=== PATIENT | female | born 1985 ===

== ENCOUNTER 2019-10-15 22:21 | Emergency (ER) | payer OTHER ==
[~2019-10-15] VITALS: Ht 162.6 cm; Wt 64.0 kg
[2019-10-15] MEDS ORDERED: NEOSPORIN OINT. PKT 1 PACKET ONE (22:51)
--- NOTE | 2019-10-15 22:53 | NUR ---
PROVIDED WITH AICHA, RESTING ON JOE KONG WITH FLIGHT OF IDEASCARRILLO SI/AUNG, ROOM SECURED. Addendum: 10/15/19 at 2308 by UVALDO PT'S PERSONAL BELONGINGS REMOVED FROM ROOM AND PLACED IN SECURITY LOCKER ( 1 BAG)
[2019-10-15] MEDS ORDERED: ZIPRASIDONE 20 MG INJ IM ONE ×2 (22:57→23:00)
--- NOTE | 2019-10-15 23:04 | NUR ---
PT MEDICATED PER MAR
--- NOTE | 2019-10-15 23:08 | NUR ---
[employer] TRAINING OFFICER AT PT'S BEDSIDE FOR WOUND CLEANING, BACITRACIN APPLIED
[2019-10-15 23:17] LABS: AMPHETAMINE SCREEN, URINE Positive (Negative); BARBITURATE SCREEN, URINE Negative (Negative); BENZODIAZEPINE SCREEN, URINE Negative (Negative); CANNABINOID SCREEN, URINE Positive (Negative); COCAINE SCREEN, URINE Negative (Negative); METHADONE SCREEN, URINE Negative (Negative); OPIATE SCREEN, URINE Negative (Negative)
[2019-10-15 23:21] LABS: BASOPHILS # (AUTO) 0.05 x10^3/uL (0-0.1); BASOPHILS % (AUTO) 1 % (0-1); EOSINOPHILS # (AUTO) 0.12 x10^3/uL (0-0.4); EOSINOPHILS % (AUTO) 1 % (1-7); LYMPHOCYTES # (AUTO) 2.99 x10^3/uL (1-3.4); LYMPHOCYTES % (AUTO) 26 % (22-44); MD NO; MEAN CORPUSCULAR HEMOGLOBIN 23.6 pg (27.0-34.8); MEAN CORPUSCULAR VOLUME 73.6 fL (80-100); MEAN PLATELET VOLUME 9.4 fL (7.4-10.4); MONOCYTES # (AUTO) 0.81 x10^3/uL (0.2-0.8); MONOCYTES % (AUTO) 7 % (2-9); NEUTROPHILS # (AUTO) 7.58 x10^3/uL (1.8-6.8); NEUTROPHILS % (AUTO) 66 % (42-75); PLATELET COUNT 506 x10^3/uL (130-400); RED BLOOD COUNT 4.64 x10^6/uL (3.82-5.3)
[2019-10-15 23:27] LABS: ALBUMIN 4.4 g/dL (3.4-5.0); ANION GAP 8 mmol/L (5-15); CHLORIDE 108 mmol/L (98-107); CREATININE 0.82 mg/dL (0.55-1.02)
--- NOTE | 2019-10-15 23:29 | NUR ---
pt in room bot and lifting garage doors up, informed pt that she is not to use or plug in bot, informed her that hospital staff will do adjustments, pt verbalized understnding and agreement.
--- NOTE | 2019-10-15 23:34 | NUR ---
pt in room yelling out, notified dredge worker pt found wiping hand sanditizer on her vaginal . soc on telephone, updated md on pt status, h/x and vs. soc to consult with pt
[2019-10-15 23:37] LABS: SALICYLATE LEVEL < 1.7 mg/dL (2.8-20.0)
--- NOTE | 2019-10-15 23:55 | NUR ---
SOC ON BOT, PT VERY DROWSY, OPENS EYES AND QUICKLY FALLS BACK TO SLEEP, SOC RECOMMENDS PT TO HAVE TELE PSYCH CONSULT COMPLETED TOMORROW AM, ERP NOTIFIED
--- NOTE | 2019-10-16 01:24 | NUR ---
Pt seen ambulating to and from restroom. Pt went back to her room and laid back down.
--- NOTE | 2019-10-16 02:20 | NUR ---
Pt resting on gurmann. Pt seen respositing self as needed.
--- NOTE | 2019-10-16 03:07 | NUR ---
Pt responds easily and appropriately to simple commands and questions. VS retaken. Warm blanket provided.
--- NOTE | 2019-10-16 04:03 | NUR ---
Pt sleeping on gurney. Positive chest rise and fall noted. Pt in view of sitter.
--- NOTE | 2019-10-16 05:41 | NUR ---
Pt remains sleeping on gurney with positive chest rise and fall noted. Pt remains in view of sitter.
--- NOTE | 2019-10-16 07:17 | NUR ---
report received from shon clark.
--- NOTE | 2019-10-16 07:18 | NUR ---
pt sleeping in gurney. resps even and unlabored.
--- NOTE | 2019-10-16 08:40 | NUR ---
Pt remains sleeping on gurney with positive chest rise and fall noted.
[2019-10-16 08:52] VITALS: BP 111/61
--- NOTE | 2019-10-16 09:09 | NUR ---
juice/snacks/belongings bag provided at this time.
--- NOTE | 2019-10-16 09:14 | NUR ---
Patient given discharge instructions and they have confirmed that they understand the instructions. Patient ambulatory with steady gait. hospital socks given at ct.
== END 2019-10-16 09:15 | disposition home or self-care (01) ==
LOC: ED 23:06
DX: S20.319A Abrasion of unspecified front wall of thorax, initial encounter (principal); F15.10 Other stimulant abuse, uncomplicated; F12.10 Cannabis abuse, uncomplicated; Z72.9 Problem related to lifestyle, unspecified; F41.9 Anxiety disorder, unspecified; X58.XXXA Exposure to other specified factors, initial encounter; Y93.9 Activity, unspecified; Y92.89 Other specified places as the place of occurrence of the external cause; Y99.8 Other external cause status
CPT/HCPCS: 36415; 80048; 80307; 82040; 84703; 85025; 96372; 99283; J3486